=== PATIENT | male | born 1950 | race Two or more races ===

== ENCOUNTER 2019-01-14 08:04 | Outpatient (CLI) | payer OTHER ==
[~2019-01-14 08:04] MED LIST: COZAAR100 MG; METFORMIN HYDRO25 G1; ONGLYZA5 MG; TORADOL10 MG PO
== END 2019-01-14 08:07 | disposition home or self-care (01) ==
LOC: SONOGRAMA 08:04
DX: E04.1 Nontoxic single thyroid nodule (principal)